=== PATIENT | female | born 1965 | race Caucasian/White ===

== ENCOUNTER → 2023-05-15 14:39 | Outpatient (REF) | payer BC, SELFPAY | LOC: WDC 14:39 | PROVIDERS: ATTENDING PHYSICIAN Family Medicine | DX: Z12.31 Encounter for screening mammogram for malignant neoplasm of breast (principal) | CPT/HCPCS: 77063; 77067 ==

== ENCOUNTER 2023-11-07 08:45 | Emergency (ER) | payer BC, SELFPAY ==
[2023-11-07 08:56] VITALS: BP 95/73
--- NOTE | 2023-11-07 09:34 | ED.GENMED ---
History of Present Illness
General
Chief Complaint: Chest Pain
Source: patient
Exam Limitations: none
Time Seen by Provider: 11/07/23 09:04
Nursing documentation reviewed up to this point in time: agreed with
History of Present Illness
History of Present Illness:
57 yo female w h/o panic attacks 'a couple times a year' here for sudden onset pain right upper back while leaning over to pick something up. Pain spread to area around the right shoulder and has now settled in the back between mid scapula and
spine. Also felt mid chest 'squeezing sensation' for about 10 minutes after that. Now has no chest discomfort, pain now only in upper back.
States she been under 'very enormous' stress lately with nasty divorce, is to drive her son to [place] tomorrow for his first year at college and 'much more.'
She denies SOB, n/v/d/c, denies abd pain or UTI symptoms.
Past History
Past History
ED Past Medical History: Psychiatric (Anxiety, panic attacks) and Other (Osteoarthritis)
ED Past Surgical History: Gynecological
Social History
Tobacco: Former smoker
Alcohol: Occasional (4 X a week 2 glasses of wine)
Drug: None
Personal:
Living: with family
Review of Systems
Review of Systems
Allergies reviewed?: Yes
All Other Systems: ROS reviewed and negative except as documented in HPI and ROS
Constitutional: Denies fatigue
Respiratory: Denies trouble breathing
Cardiac: Reports chest pain; Denies diaphoresis, palpitations or syncope
ABD/GI: Denies abdominal pain, nausea, vomiting or diarrhea
: Denies dysuria, frequency or difficulty voiding
Musculoskeletal: Reports back pain (tender point mid upper right back); Denies edema
Skin: Reports no symptoms
Neurological: Reports no symptoms
Psychiatric: Reports anxiety
Phy Exam
Physical Exam
Physical Exam:
GENERAL: No acute distress. A&Ox3.
CONSTITUTIONAL: Afebrile.
EYES: tearful, conjunctivae moist reddened
Neck: Supple
ENMT: moist mucus membranes, Pharynx nl
RESPIRATORY: Regular respirations, nonlabored, lungs clear.
CARDIOVASCULAR: Regular rate and rhythm, no murmurs, no rubs.
GI: Soft, nontender, normal BS
MUSCULOSKELETAL: Moves with ease. Well perfused. Trigger point mid right back between mid scapula and spine. Pressure here immediately reproduces pain
SKIN: Warm, dry, pink
PSYCH: Tearful, anxious mood and affect. Well kept, interactive and appropriate
NEUROLOGIC: Awake, alert and oriented. No focal neurological deficits
Scores
Heart Score for Chest Pain Patients
STEMI patient?: Not applicable
Course
Orders/Labs/Results
Orders:
Orders
11/07/23 09:00
Electrocardiogram (*1) Urgent
Reason for Study: Chest Pain
EKG- Treatment ONCE
11/07/23 09:29
CR Chest - 2 Views Urgent
Comment:
Reason For Exam: chest pain
11/07/23 09:44
Complete Blood Count/With Diff Urgent
Troponin I Urgent
11/07/23 09:45
Comprehensive Metabolic Panel Urgent
11/07/23 10:57
Lidocaine [Lidocaine 4% Patch] 1 patch TOPICAL NOW STA
Apply Lidocaine patch(s) to:: Right upper back at trigger point
Abnormal Lab Results
11/07/23 11/07/23
09:44 09:45
WBC 4.7 L 10^3/uL
(4.8-10.8)
BUN 21 H mg/dl
(7-17)
Calcium 10.3 H mg/dl
(8.4-10.2)
11/07/23 09:44
11/07/23 09:45
Vital Signs
Initial and Last Documented VS:
Initial Vital Signs
Temp Pulse Resp BP Pulse Ox
98.2 F 77 18 95/73 98
11/07/23 08:56 11/07/23 08:56 11/07/23 08:56 11/07/23 08:56 11/07/23 08:56
Last Documented Vital Signs
Temp Pulse Resp BP Pulse Ox
97.7 F 65 18 99/62 97
11/07/23 11:27 11/07/23 11:27 11/07/23 11:27 11/07/23 11:27 11/07/23 11:27
MDM/Problems Addressed
Differential Diagnosis Includes:
Panic attack, anxiety/depression, trigger point mid R thoracic ST, cardiac etiology (doubtful)
MDM/Problems Addressed:
57 yo female w h/o panic attacks 'a couple times a year' here for sudden onset pain right upper back while leaning over to pick something up. Pain spread to area around the right shoulder and has now settled in the back between mid scapula and
spine. Also felt mid chest 'squeezing sensation' for about 10 minutes after that. Now has no chest discomfort, pain now only in upper back.
States she been under 'very enormous' stress lately with nasty divorce, is to drive her son to [place] tomorrow for his first year at college and 'much more.'
She denies SOB, n/v/d/c, denies abd pain or UTI symptoms.
EKG: Sinus rhythm with borderline 1st degree block.
Pt tearful, afraid she is having a heart attack.
Suspect panic attack with trigger point thoracic back. For pt peace of mind cardiac evaluation performed
10:30 AM:
CBC normal
CMP unremarkable
Troponin normal
Chest x-ray normal
Patient reassured
Rx for muscle relaxant sent to her pharmacy. She states she feels much better. Instructed to not drive within 8 hours of taking Flexeril
*Critical Care Note
Total Time (30-74mins, 75-104mins- exclusive of procedures): Not Applicable
ED Attending Note
-
Portions of this chart may have been created with voice recognition software.� Occasional wrong word or��sound alike� substitutions may have occurred due to the inherent limitations of voice recognition software.
Discharge Plan
Departure
Patient Disposition: Home (Routine Discharge)
Date of Disposition: 11/07/23
Time of Disposition: 10:50
Patient with high blood pressure during this ER visit?: No
Condition: Good
Discharge Problem:
Trigger point of right shoulder region, Anxiety
Instructions: Chest Pain That Is Not Caused by the Heart (DC), Stress, Muscle Spasm ED
Prescriptions:
New
cyclobenzaprine 10 mg tablet
10 mg PO HS PRN (Reason: muscle spasm/pain) Qty: 7 0RF
lidocaine 4 % adhesive patch,medicated
1 patch topical BID PRN (Reason: Pain) Qty: 10 0RF
Referrals:
UNKNOWN - PT DOES,NOT KNOW [Family Provider] -
Activity Restrictions/Additional Instructions:
Lidocaine 4% patch to the area twice as needed to see if it helps
Ibuprofen or Aleve may also help
Gentle massage to the area
Warm compress to relive the spasm
Flexeril (cyclobenzaprine) is a muscle relaxant and can make you sleepy and slow the reflexes so do not drive or operate any machinery within 8 hours of taking it. Save for bedtime to use as needed.
Interventions
Interventions:
*Risk Screen - Suicide Last Done: 11/07/23 08:56
*General Assessment Last Done: 11/07/23 08:56
*Neglect/Abuse Screening Last Done: 11/07/23 08:56
ED- Fall Risk Assessment Last Done: 11/07/23 11:26
*ED COVID-19 Vaccine History Last Done: 11/07/23 11:27
*Nursing Disposition Last Done: 11/07/23 11:27
ED- Cardiac Assessment Last Done: 11/07/23 10:03
Discharge Date and Time
Discharge Date/Time: 11/07/23 11:29
Print Language: CHINESE
[2023-11-07 09:59] LABS: % Basophils 0.9 % (0-2); % Eosinophils 1.9 % (0-6); % Immature Granulocytes 0.2 % (0-0.5); Absolute Eosinophils 0.1 10^3/uL (0-0.7); Absolute Lymphocytes 1.6 10^3/uL (1.2-3.4); Absolute Monocytes 0.4 10^3/uL (0.1-0.6); Absolute Neutrophils 2.5 10^3/uL (1.4-6.5); Hemoglobin 13.7 g/dL (12.0-16.0); Mean Corp Hgb Conc. 36.1 g/dL (33.0-37.0); Mean Corpuscular Hgb 30.5 pg (27.0-31.0); Mean Corpuscular Volume 84.6 fL (81.0-99.0); Nucleated Red Blood Cells % 0 %; Platelet Count 294 10^3/uL (130-400); Red Blood Cell Count 4.49 10^6/uL (4.20-5.40); Red Cell Dist. Width 12.4 % (11.5-14.5); White Blood Cell Count 4.7 10^3/uL (4.8-10.8)
[2023-11-07 10:10] LABS: ALT (SGPT) 18 U/L (0-35); AST (SGOT) 23 U/L (14-36); Albumin 4.7 g/dl (3.5-5.0); Alkaline Phosphatase 52 U/L (38-126); Blood Urea Nitrogen 21 mg/dl (7-17); Calcium 10.3 mg/dl (8.4-10.2); Carbon Dioxide 22 mmol/L (22-30); Chloride 105 mmol/L (98-107); Glucose 98 mg/dl (70-99); Potassium 3.8 mmol/L (3.5-5.1); Sodium 138 mmol/L (135-145); Total Bilirubin 0.8 mg/dl (0.2-1.3); eGFR > 60.00
[2023-11-07 10:21] LABS: Troponin I < 0.012 ng/ml
[2023-11-07] MEDS: LIDOCAINE 4% PATCH 1 PATCH TOPICAL (11:10)
[2023-11-07 11:27] VITALS: BP 99/62
== END 2023-11-07 11:29 | disposition home or self-care (01) ==
LOC: EMR 08:45
PROVIDERS: Registered Nurse; EMERGENCY PHYSICIAN Emergency Medicine
DX: M25.511 Pain in right shoulder (principal); M54.6 Pain in thoracic spine; R07.89 Other chest pain; F41.9 Anxiety disorder, unspecified; F41.0 Panic disorder [episodic paroxysmal anxiety]; Z73.3 Stress, not elsewhere classified; Z87.891 Personal history of nicotine dependence
CPT/HCPCS: 99283; 71046; 80053; 84484; 85025; 93005

== ENCOUNTER → 2024-05-16 15:01 | Outpatient (REF) | payer BC, SELFPAY | LOC: WDC 15:01 | PROVIDERS: ATTENDING PHYSICIAN Nurse Practitioner Adult Health; FAMILY PHYSICIAN Nurse Practitioner Family | DX: Z12.31 Encounter for screening mammogram for malignant neoplasm of breast (principal) | CPT/HCPCS: 77063; 77067 ==